=== PATIENT | male | born 1975 | race Caucasian/White ===

== ENCOUNTER 2017-07-16 16:14 | Emergency (ER) | payer OTHER ==
--- NOTE | 2017-07-16 16:26 | UC ---
Head Injury HPI - HPI Summary HPI Summary: 42 year old male present with complains of head injury with profuse bleeding and somnolence secondary to tree branch. - History Of Current Complaint Stated Complaint: HEAD INJURY Time Seen by Provider: 07/16/17 16:22 Hx Obtained From: Patient Onset/Duration: Sudden Onset Severity Currently: Moderate Severity Initially: Moderate Character: Sharp Aggravating Factor(s): Nothing Alleviating Factor(s): Nothing - Allergies/Home Medications Allergies/Adverse Reactions: Allergies Allergy/AdvReac Type Severity Reaction Status Date / Time No Known Allergies Allergy Verified 12/24/13 06:20 PMH/Surg Hx/FS Hx/Imm Hx Previously Healthy: Yes - Surgical History Surgical History: Yes Surgery Procedure, Year, and Place: ANAL FISSURE, 2009, [facility] - Social History Alcohol Use: Weekly Alcohol Amount: 2 DRINKS A WEEK Substance Use Type: None Amount Used/How Often: 3-4 CIGS A DAY Have You Smoked in the Last Year: No When Did the Patient Quit Smoking/Using Tobacco: 2003 Review of Systems Constitutional: Negative Skin: Other - POSTERIOR SCALP LACERATION Eyes: Negative ENT: Negative Respiratory: Negative Cardiovascular: Negative Gastrointestinal: Negative Genitourinary: Negative Motor: Negative Neurovascular: Negative Musculoskeletal: Negative Neurological: Headache Psychological: Negative All Other Systems Reviewed And Are Negative: Yes Physical Exam Triage Information Reviewed: Yes Vital Signs Reviewed: Yes Eye Exam: Normal ENT Exam: Normal Dental Exam: Normal Neck exam: Normal Neck: Positive: 1 Respiratory Exam: Normal Cardiovascular Exam: Normal Abdominal Exam: Normal Musculoskeletal Exam: Normal Neurological Exam: Normal Psychological Exam: Normal Skin Exam: Normal Skin: Positive: Other - POSTERIOR SCALP LACERATION Head Injury Course/Dx - Differential Dx/Diagnosis Provider Diagnoses: POSTERIOR HEAD LACERATION. HEADACHE. SOMNOLENCE Discharge - Discharge Plan Condition: Critical Disposition: [facility] Referrals: Jaime Ceron MD [Primary Care Provider] -
[2017-07-16 16:37] VITALS: BP 102/53
[2017-07-16] MEDS ORDERED: NS 0.9% 1000 ML* 1,000 ML IV ONE (16:50)
== END 2017-07-16 16:40 | disposition short-term general hospital (02) ==
LOC: UCEAST 16:14
DX: S01.01XA Laceration without foreign body of scalp, initial encounter (principal); W22.8XXA Striking against or struck by other objects, initial encounter; Y93.9 Activity, unspecified; Y92.9 Unspecified place or not applicable; Y99.9 Unspecified external cause status; R40.0 Somnolence
CPT/HCPCS: 96360; 99213; G0463

== ENCOUNTER 2017-07-16 17:07 | Emergency (ER) | payer OTHER ==
[2017-07-16 17:19] VITALS: BP 124/78
--- NOTE | 2017-07-16 17:46 | RAD ---
INDICATION: Head injury. COMPARISON: There are no prior studies available for comparison. TECHNIQUE: Contiguous axial sections of the brain were obtained from the skull base to the vertex without contrast. FINDINGS: The ventricles, cisterns and sulci are within normal limits. No significant focal abnormality or mass effect is seen. There is no evidence for hemorrhage. There is soft tissue swelling and a soft tissue defect in the scalp in the right posterior parietal region. No fracture is seen. There is a 1.8 x 1.2 cm nodular density in the right maxillary sinus most consistent with a mucous retention cysts less likely a polyp. The visualized portion of the paranasal sinuses and mastoid air cells otherwise appear clear. IMPRESSION: NO EVIDENCE FOR ACUTE INTRACRANIAL ABNORMALITY.
[2017-07-16] MEDS ORDERED: Lidocaine 2% EPI 1:200000 MPF* 20 ML VIAL ONE (17:47)
[2017-07-16] MEDS ORDERED: Ondansetron ODT TAB* 4 MG ONE (17:56)
[2017-07-16] MEDS ORDERED: Ondansetron ODT TAB* 4 MG PO ONE (17:57)
[2017-07-16] MEDS ORDERED: Tetan/Diph/Pertus SYR(Tdap)* 0.5 ML SYR(BOOSTRIX) use SYR IM ONE (18:06)
--- NOTE | 2017-07-16 18:32 | ED ---
Mena Mccoy Emily, scribed for Monty Munoz MD on 07/16/17 at 1720 . Head Injury - HPI Summary HPI Summary: This patient is a 42 year old M BIBA to [facility] with s/p head injury that occurred. Tree branch fell on the back of patients head. Pt reports falling, feeling whoozy, and blacking out after being hit. The patient rates the pain 4/10 in severity. Symptoms aggravated by nothing. Symptoms alleviated by nothing. Patient denies neck pain and headache. - History Of Current Complaint Stated Complaint: HEAD INJURY Time Seen by Provider: 07/16/17 17:16 Hx Obtained From: Patient Onset of Pain: Immediate Severity Currently: Mild Severity Initially: Mild Pain Intensity: 4 Pain Scale Used: 0-10 Numeric Location of Head Injury: Occipital - Allergies/Home Medications Allergies/Adverse Reactions: Allergies Allergy/AdvReac Type Severity Reaction Status Date / Time No Known Allergies Allergy Verified 12/24/13 06:20 PMH/Surg Hx/FS Hx/Imm Hx Previously Healthy: No Endocrine/Hematology History: Denies: Hx Diabetes, Hx Thyroid Disease Cardiovascular History: Denies: Hx Hypertension, Hx Pacemaker/ICD, Other Cardiovascular Problems/ Disorders Respiratory History: Denies: Hx Asthma, Hx Chronic Obstructive Pulmonary Disease (COPD), Other Respiratory Problems/Disorders GI History: Denies: Hx Ulcer, Other GI Disorders Musculoskeletal History: Denies: Other Musculoskeletal History Sensory History: Reports: Hx Contacts or Glasses - GLASSES Denies: Hx Hearing Aid Opthamlomology History: Reports: Hx Contacts or Glasses - GLASSES Neurological History: Denies: Other Neuro Impairments/Disorders Psychiatric History: Reports: Hx Anxiety - ON MEDS, Hx Depression - ON MEDS Denies: Hx Panic Disorder - Surgical History Surgery Procedure, Year, and Place: ANAL FISSURE, 2009, [facility] Hx Anesthesia Reactions: No Infectious Disease History: Denies: Hx Clostridium Difficile, Hx Hepatitis, Hx Human Immunodeficiency Virus (HIV), Hx of Known/Suspected MRSA, Hx Shingles, Hx Tuberculosis, Hx Known/ Suspected VRE, Hx Known/Suspected VRSA, History Other Infectious Disease, Traveled Outside the [place] in Last 30 Days - Family History Known Family History: Positive: Diabetes - Social History Occupation: Employed Full-time Lives: With Family Alcohol Use: Weekly Alcohol Amount: 2 DRINKS A WEEK Substance Use Type: Reports: None Smoking Status (MU): Never Smoked Tobacco Amount Used/How Often: 3-4 CIGS A DAY Have You Smoked in the Last Year: No Review of Systems Positive: Other - Negative neck pain Negative: Headache All Other Systems Reviewed And Are Negative: Yes Physical Exam - Summary Physical Exam Summary: VITAL SIGNS: Reviewed. GENERAL: ~Patient is a well-developed and nourished male who is lying comfortable in the stretcher. ~Patient is not in any acute respiratory distress. HEAD AND FACE: No sinus tenderness. 2.5 cm laceration in right occipital area EYES: PERRLA, EOMI x 2, No injected conjunctiva, no nystagmus. EARS: Hearing grossly intact. Ear canals and tympanic membranes are within normal limits. MOUTH: Oropharynx within normal limits. NECK: Supple, trachea is midline, no adenopathy, no JVD, no carotid bruit, no c- spine tenderness, neck with full ROM. CHEST: Symmetric, no tenderness at palpation LUNGS: Clear to auscultation bilaterally. No wheezing or crackles. CVS: Regular rate and rhythm, S1 and S2 present, no murmurs or gallops appreciated. ABDOMEN: Soft, non-tender. No signs of distention. No rebound no guarding, and no masses palpated. Bowel sounds are normal. EXTREMITIES: FROM in all major joints, no edema, no cyanosis or clubbing. NEURO: Alert and oriented x 3. No acute neurological deficits. Speech is normal and follows commands. SKIN: Dry and warm Triage Information Reviewed: Yes Vital Signs On Initial Exam: Initial Vitals Temp Pulse Resp BP Pulse Ox 97.9 F 93 19 124/78 96 07/16/17 17:14 07/16/17 17:14 07/16/17 17:14 07/16/17 17:14 07/16/17 17:14 Vital Signs Reviewed: Yes Procedures - Laceration/Wound Repair 1 Location: Other - scalp Description: Irregular Anesthesia: 2.0%, Epi Length, Depth and Shape: 2.5 cm Betadine Prep?: Yes Irrigated w/ Saline (ccs): 500 Laceration/Wound Explored: clean Closure: William #__ - 10 Debridement: minimal Diagnostics - Vital Signs Vital Signs Temp Pulse Resp BP Pulse Ox 07/16/17 17:14 97.9 F 93 19 124/78 96 - Laboratory Lab Statement: Any lab studies that have been ordered have been reviewed, and results considered in the medical decision making process. - CT Brain CT Interpretation Completed By: Radiologist - A brain CT read by radiologist reveals no evidence for acute intracranial abnormality. ED physician has reviewed this radiology report and agrees. Head Injury Course/Dx Assessment/Plan: Head CT Negative for an acute intracranial pathology. In the ED course his laceration was repaired w/o any complications. . He has no neck pain therefore I did not perform a c spine CT. He is ambulating w/o any other pain. He declined any pain medications. At this point I discussed all the findings and test results with the patient and patients parents. They were instructed to return to the emergency room immediately if any of the symptoms return or worsens. They understand and agree. Neurological exam before discharge : Patient is alert and oriented x 3. No acute neurological deficits. Patient vital signs are stable. Patient is to follow up with the [employer] consultant in the next 2 3 days. They understand and agree. Plan of care was discussed with the patient and patient understands and agrees with the plan of care. All questions were answered at patient satisfaction. There were no further complaints or concerns. - Diagnoses Differential Diagnosis/HQI/PQRI: Cervical Sprain, Concussion Without LOC, Contusion, Hematoma, Intracranial Bleed, Skull Fracture Provider Diagnoses: Head contusion, Scalp laceration Discharge - Discharge Plan Condition: Stable Disposition: HOME Patient Education Materials: Laceration (ED), Contusion in Adults (ED) Referrals: [facility] [Outside] Additional Instructions: RETURN TO THE EMERGENCY DEPARTMENT FOR CHANGING OR WORSENING SYMPTOMS. The documentation as recorded by the Mena duarte Emily accurately reflects the service I personally performed and the decisions made by Alexander urias Walter, MD.
== END 2017-07-16 18:54 | disposition home or self-care (01) ==
LOC: ED 17:07
DX: S01.01XA Laceration without foreign body of scalp, initial encounter (principal); W20.8XXA Other cause of strike by thrown, projected or falling object, initial encounter; Y93.9 Activity, unspecified; Y92.9 Unspecified place or not applicable; Z23 Encounter for immunization; Z72.0 Tobacco use
CPT/HCPCS: 12001; 70450; 90471; 90715; 99282; A9270-GY

== ENCOUNTER 2018-01-20 13:01 | Emergency (ER) | payer OTHER ==
--- OUTSIDE RECORDS SUMMARY | 2018-01-20 13:07 | XMS REPORT ---
:1975 External Reference #:[id number] Author Organization [facility] Address [address] [address] Phone [phone] Care Team Providers Name Role Phone Jaime Ceron MD Care Team Information Doubler Operator Unavailable Jaime Ceron MD Primary Care Physician Unavailable Payers Type Date Identification Numbers Payment Provider Subscriber Commercial Policy Number: [id number] [employer] Mitul Nair Group Number: [id number] [address] PayID: [id number] [place] [address] Problems Description No Information Family History Date Family Member(s) Problem(s) Comments General Diabetes maternal grandfather Father Unknown Father due to MVA () Mother Skin Cancer Mother Seasonal depression Mother Anxiety Siblings 1 1 sister Social History Type Date Description Comments Marital Status Lives With spouse Lives With Children x3 Occupation Director [employer] Cigarette Use Former Cigarette Smoker Smoked 2 per day for 3-4 years ETOH Use Denies alcohol use Smoking Patient is a former smoker Recreational Drug Use Denies Drug Use Daily Caffeine Consumes on average 32oz of soda per day Exercise Type/Frequency Does not exercise Allergies, Adverse Reactions, Alerts Date Description Reaction Status Severity Comments 11/18/2013 NKDA active Medications Medication Date Status Form Strength Qnty SIG Indications Ordering Provider Jewell Active Tablets ER 450mg 30tabs 1 po Unknown Carbonate ER 00 bid Paxil Active Tablets 20mg 30tabs 1 po Unknown 00 bid Ibuprofen Active 400mg qd Unknown 00 Depakote Active 250mg qd Unknown 00 Vital Signs Date Vital Result Comment 01/05/2018 Height 72 inches 6'0" Weight 262.00 lb Heart Rate 92 /min BP Systolic Sitting 128 mmHg BP Diastolic Sitting 88 mmHg Respiratory Rate 14 /min O2 % BldC Oximetry 96 % BMI (Body Mass Index) 35.5 kg/m2 Neck Circumference in inches 17.25 06/15/2016 Height 72 inches 6'0" Weight 212.00 lb Respiratory Rate 16 /min Pain Level 4 BMI (Body Mass Index) 28.7 kg/m2 04/21/2014 Height 73 inches 6'1" Heart Rate 82 /min BP Systolic 116 mmHg BP Diastolic 74 mmHg 02/17/2014 Height 73 inches 6'1" Heart Rate 76 /min BP Systolic 114 mmHg BP Diastolic 81 mmHg 01/10/2014 Height 73 inches 6'1" Weight 250.00 lb Heart Rate 84 /min BMI (Body Mass Index) 33.0 kg/m2 11/18/2013 Height 73 inches 6'1" Weight 250.00 lb Heart Rate 89 /min 89 BP Systolic 135 mmHg BP Diastolic 88 mmHg BMI (Body Mass Index) 33.0 kg/m2 Results Description No Information Procedures Date CPT Code Description Status 12/24/2013 73419 Arthroscopy,Knee,Meniscectomy Medial Or Lateral Completed 12/24/2013 26450 Arthroscopy,Knee,Meniscectomy Medial Or Lateral Completed Encounters Type Date Location Provider CPT E/M Dx Office Visit 01/05/2018 [place] [address] R06.83 8:30a [facility] R53.83 Office Visit 06/15/2016 10:00a [facility] Janine Del Valle 29727 M70.22 Of C.MOlivia Quiroz Office Visit 04/21/2014 9:30a [facility] Sherrie Esparza M.D. 20770 719.06 Of [facility] Office Visit 11/18/2013 11:00a [facility] Sherrie Esparza M.D. 60246 836.0 Of [facility] Plan of Care Future Appointment(s):03/20/2018 8:15 am - Anita Rhodes DNP, RN, LOCOMOTIVE ENGINEER-BC at [facility]01/05/2018 - Barbara Rojas MDR06.83 SnoringNew Orders:Sleep StudyFollow up:6 weeks Odalis.83 Other fatigue
[2018-01-20 13:36] VITALS: BP 136/90
--- NOTE | 2018-01-20 14:31 | UC ---
Al Mccoy Julia, scribed for Poppy Kovacs MD on 01/20/18 at 1409 . General HPI - HPI Summary HPI Summary: This patient is a 42 year old M [place] [facility] [place] chief complaint of sinus congestion with mucous in the back of throat since 01/18/18. Patient reports mild SOB, body myalgia, mucous in back of throat, sore throat, and ear pain with new ringing. Patient denies fever. The patient rates the pain 6/10 in severity. Pt was unable to sleep last night due to difficulty breathing due to congestion/fluid in throat. PMHx includes bipolar II disorder and seasonal allergies typically at this time of the year. Pt has been took mucinex late last night with mild relief. He has been trying to limit Ibuprofen use with the post concussive headaches. Pt had a concussion in July of 2017 when a tree branch hit him in the head, with lingering photophobia. Pt is seen at [facility] in [place]. An MRI has been performed on . Pt mentions sinus cavities were inflamed on the imagining. Report was reviewed with patient. Pt has one sick contact at home, with similar symptoms a week ago. 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 - History of Current Complaint Chief Complaint: UCRespiratory Stated Complaint: SINUS COMPLAINT Time Seen by Provider: 01/20/18 13:45 Hx Obtained From: Patient Onset/Duration: Lasting Days Timing: Constant Pain Intensity: 6 Pain Location at: throat Character: sore Associated Signs & Symptoms: Positive: Headache, SOB, Other - sinus congestion, mucous in throat - Allergy/Home Medications Allergies/Adverse Reactions: Allergies Allergy/AdvReac Type Severity Reaction Status Date / Time ANESTHSIA Allergy Anaphylatic Uncoded 01/20/18 13:36 Shock PMH/Surg Hx/FS Hx/Imm Hx Previously Healthy: No - concussion 07/18 Other Neurological History: concussion Psychological History: Bipolar Disorder - Surgical History Surgical History: Yes Surgery Procedure, Year, and Place: ANAL FISSURE, 2009, [facility] - Family History Known Family History: Positive: Diabetes - Social History 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 Lives: With Family - and three children Alcohol Use: Rare Alcohol Amount: 2 DRINKS A WEEK Substance Use Type: None Smoking Status (MU): Never Smoked Tobacco Amount Used/How Often: 3-4 CIGS A DAY Have You Smoked in the Last Year: No When Did the Patient Quit Smoking/Using Tobacco: 2003 Review of Systems Constitutional: Fatigue Eyes: Photophobia - secondary to concussion ENT: Sore Throat, Ear Ache - with ringling, Nasal Discharge, Sinus Congestion, Sinus Pain/Tenderness Respiratory: Shortness Of Breath Neurological: Headache All Other Systems Reviewed And Are Negative: Yes Physical Exam Triage Information Reviewed: Yes Completion Of Physical Exam Limited Due To: Other - Seated in dark room with dark glasses and a cap Appearance: Ill-Appearing - looks unwell., Pain Distress - mild to moderate. Vital Signs: Initial Vital Signs Temp 98.8 F 01/20/18 13:30 Pulse 101 01/20/18 13:30 Resp 18 01/20/18 13:30 BP 136/90 01/20/18 13:30 Pulse Ox 98 01/20/18 13:30 ENT: Positive: Pharyngeal erythema - soft palate deeply erythematous with purulent discharge and mild erosions., TMs normal, Tonsillar swelling Neck: Positive: Supple, Nontender, Enlarged Nodes @ - tonsillar Respiratory: Positive: Lungs clear, Normal breath sounds Cardiovascular: Positive: RRR, No Murmur Musculoskeletal Exam: Normal Neurological: Positive: Alert Psychological Exam: Normal Skin Exam: Normal Diagnostics - Laboratory Diagnostic Studies Completed/Ordered: rapid strep positive Course/Dx - Course Course Of Treatment: amoxicillin for treatment of strep. - Differential Dx - Multi-Symptom Provider Diagnoses: strep tonsillitis. Discharge - Sign-Out/Discharge Documenting (check all that apply): Discharge - Discharge Plan Condition: Stable Disposition: HOME Prescriptions: Amoxicillin PO (*) [Amoxicillin 875 MG (*)] 875 mg PO BID #20 tab Patient Education Materials: Strep Throat (ED) Referrals: Elena Mae MD [Primary Care Provider] - Additional Instructions: Begin course of amoxicillin, taking both doses today. I anticipate that you will feel significantly better by the Monday of the . You can use warm water and salt gargling to relief the sore throat and help to reduce the swelling. - Billing Disposition and Condition Condition: STABLE Disposition: HOME The documentation as recorded by the Al duarte Julia accurately reflects the service I personally performed and the decisions made by me, Poppy Kovacs MD.
== END 2018-01-20 14:36 | disposition home or self-care (01) ==
LOC: UCEAST 13:01
DX: J03.00 Acute streptococcal tonsillitis, unspecified (principal); Z87.820 Personal history of traumatic brain injury; F31.9 Bipolar disorder, unspecified; Z88.4 Allergy status to anesthetic agent
CPT/HCPCS: 87651; 99212; G0463